=== PATIENT | female | born 1960 | race Caucasian/White ===

== ENCOUNTER → 2023-09-08 13:22 | Outpatient (REF) | payer MEDICARE, BC, SELFPAY | LOC: HWRAD 13:22 | PROVIDERS: ATTENDING PHYSICIAN Student in an Organized Health Care Education/Training Program | DX: R07.81 Pleurodynia (principal); A31.0 Pulmonary mycobacterial infection; R05.3 Chronic cough; J47.9 Bronchiectasis, uncomplicated | CPT/HCPCS: 71046 ==

== ENCOUNTER → 2023-09-11 06:24 | Day surgery (SDC) | payer MEDICARE, BC, SELFPAY | LOC: GI 06:24 | PROVIDERS: ATTENDING PHYSICIAN Internal Medicine Gastroenterology | DX: Z12.11 Encounter for screening for malignant neoplasm of colon (principal); K64.8 Other hemorrhoids; K31.89 Other diseases of stomach and duodenum; R10.13 Epigastric pain; Z86.010 Personal history of colon polyps | CPT/HCPCS: 45378; 43239; 88305; 88342 ==